=== PATIENT | female | born 1950 | race Hispanic/Latino ===

== ENCOUNTER 2020-12-11 13:40 | Observation (INO) | payer OTHER ==
[~2020-12-11] VITALS: Ht 157.5 cm; Wt 54.4 kg
[2020-12-11 14:02] LABS: BASOPHILS % (AUTO) 0.7 % (0.0-5.0); EOSINOPHILS % (AUTO) 2.3 % (0.0-8.0); HEMATOCRIT 38.5 % (36-48); LYMPHOCYTES % (AUTO) 35.9 % (21.0-51.0); MEAN CORPUSCULAR HEMOGLOBIN 30.5 pg (27.0-33.0); MEAN CORPUSCULAR HGB CONC 34.3 g/dL (32.0-36.0); MEAN CORPUSCULAR VOLUME 88.9 fL (79-99); MONOCYTES % (AUTO) 8.6 % (3.0-13.0); NEUTROPHILS % (AUTO) 51.4 % (40.0-77.0); PLATELET COUNT (AUTO) 180 K/uL (130-400); RED BLOOD CELL COUNT(AUTO) 4.33 MIL/uL (4.00-5.50); RED CELL DISTRIBUTION WIDTH 13.3 % (11.0-15.5); WHITE BLOOD COUNT (AUTO) 5.7 K/uL (4.8-10.8)
[2020-12-11 14:13] LABS: CREATININE 0.8 mg/dL (0.5-1.5); INR 0.94 (0.85-1.15); POTASSIUM 3.7 mmol/L (3.5-5.1); PROTHROMBIN TIME 10.3 SEC (9.6-11.6)
[2020-12-11 14:14] LABS: PARTIAL THROMBOPLASTIN TIME 24.2 SEC (26.3-35.5)
[2020-12-11 14:18] LABS: ALBUMIN 4.1 g/dL (3.5-5.0); BILIRUBIN,TOTAL 1.6 mg/dL (0.2-1.0); TOTAL PROTEIN, SERUM 6.9 g/dL (6.0-8.3)
[2020-12-11 14:24] LABS: B-TYPE NATRIURETIC PEPTIDE 53 pg/mL (0-100)
[2020-12-11] MEDS ORDERED: IOHEXOL 350 MG/ML 100ML INFUS..BTL IV ONE (14:37)
[2020-12-11 15:00] LABS: APPEARANCE,URINE Clear (CLEAR); BILIRUBIN,URINE Negative (NEGATIVE); COLOR,URINE Yellow (YELLOW); GLUCOSE, URINE (UA) Negative (NEGATIVE); KETONES,URINE Negative (NEGATIVE); LEUKOCYTE ESTERASE ,URINE Negative (NEGATIVE); NITRATE,URINE Negative (NEGATIVE); OCCULT BLOOD,URINE Negative (NEGATIVE); PROTEIN,URINE Negative (NEGATIVE); UROBILINOGEN,URINE 0.2 mg/dL (0.2-1.0)
[2020-12-11 15:04] LABS: RAPID GROUP A STREP NEGATIVE (NEGATIVE)
[2020-12-11] MEDS ORDERED: ONDANSETRON HCL 4 MG/2 ML VIAL IVP PRN (15:45)
[2020-12-11] MEDS ORDERED: SODIUM CHLORIDE 0.9% 1000ML 1,000 ML IV SCH (15:45)
[2020-12-11] MEDS ORDERED: ACETAMINOPHEN 325 MG TAB PO PRN (15:45)
[2020-12-11] MEDS ORDERED: ASPIRIN 325 MG TABLET ONE (16:57)
[2020-12-11 18:01] VITALS: BP 155/76
[2020-12-11] MEDS ORDERED: LATA2.5D14 OU (18:16)
[2020-12-11] MEDS ORDERED: PRAV40TA3 PO (18:16)
[2020-12-11] MEDS ORDERED: LEVO88TA7 PO (18:16)
[2020-12-11] MEDS ORDERED: LISI10TA24 PO (18:16)
[2020-12-11 20:23] VITALS: BP 136/70
[2020-12-11 23:42] VITALS: BP 122/63
[2020-12-12 04:09] VITALS: BP 133/69
[2020-12-12 08:00] VITALS: BP 142/77
[2020-12-12] MEDS ORDERED: ATEN25TA PO ×2 (09:28→10:17)
[2020-12-12] MEDS ORDERED: LISI10TA24 PO (10:17)
[2020-12-12] MEDS ORDERED: ASPI-1443 PO (10:19)
[2020-12-12 12:00] VITALS: BP 129/75
[2020-12-12] MEDS ORDERED: ATORVASTATIN CALCIUM 10 MG TABLET PO SCH (21:00)
[2020-12-13] MEDS ORDERED: LEVOTHYROXINE 88 MCG TABLET PO SCH (06:30)
== END 2020-12-12 13:00 | disposition home or self-care (01) ==
LOC: EDH 13:40 → EDHIP 14:58 → 3AH 17:50
PROVIDERS: ADMIT Internal Medicine; ATTEND Internal Medicine
DX: R41.82 Altered mental status, unspecified (principal); Z20.822 Contact with and (suspected) exposure to COVID-19; F41.1 Generalized anxiety disorder; I12.9 Hypertensive chronic kidney disease with stage 1 through stage 4 chronic kidney disease, or unspecified chronic kidney disease; N18.2 Chronic kidney disease, stage 2 (mild); F32.5 Major depressive disorder, single episode, in full remission; R41.3 Other amnesia; M19.90 Unspecified osteoarthritis, unspecified site; E80.4 Gilbert syndrome; E53.8 Deficiency of other specified B group vitamins; E78.2 Mixed hyperlipidemia; E03.9 Hypothyroidism, unspecified; M81.0 Age-related osteoporosis without current pathological fracture; M43.16 Spondylolisthesis, lumbar region; E88.81 Metabolic syndrome and other insulin resistance; M50.90 Cervical disc disorder, unspecified, unspecified cervical region; Z87.891 Personal history of nicotine dependence; Z79.899 Other long term (current) drug therapy
CPT/HCPCS: 36415; 70450; 70496; 70498; 71045; 80053; 81003; 82550; 82948; 83605; 83880; 84145; 84484; 85025; 85610; 85730; 87040 ×2; 87426; 87804 ×2; 87880; 93005; 96360; 96361; 99285; G0378 ×22; Q9967; U0003

== ENCOUNTER 2023-10-20 13:45 | Emergency (ER) | payer OTHER ==
[~2023-10-20] VITALS: Ht 154.9 cm; Wt 63.0 kg
[~2023-10-20 13:45] MED LIST: ASPI-1443 PO; ATEN25TA PO; LATA2.5D14 OU; LEVO88TA7 PO; LISI10TA24 PO; PRAV40TA3 PO
[2023-10-20] MEDS: METOCLOPRAMIDE 10 MG/2 ML VIAL IVP ONE (15:24)
[2023-10-20] MEDS: MORPHINE 2 MG SYG IVP ONE (15:24)
[2023-10-20 16:01] LABS: BASOPHILS # (AUTO) 0.03 K/uL (0.00-0.20); BASOPHILS % (AUTO) 0.7 % (0.0-5.0); EOSINOPHILS # (AUTO) 0.05 K/uL (0.00-0.70); EOSINOPHILS % (AUTO) 1.2 % (0.0-8.0); HEMATOCRIT 40.2 % (36-48); IMMATURE GRANULOCYTE ABSOLUTE 0.01 K/uL (0-1); LYMPHOCYTES # (AUTO) 0.9 K/uL (1.0-4.8); LYMPHOCYTES % (AUTO) 20.5 % (21.0-51.0); MEAN CORPUSCULAR HEMOGLOBIN 30.2 pg (27.0-33.0); MEAN CORPUSCULAR HGB CONC 33.1 g/dL (32.0-36.0); MEAN CORPUSCULAR VOLUME 91.4 fL (79-99); MONOCYTES # (AUTO) 0.4 K/uL (0.1-1.0); MONOCYTES % (AUTO) 8.8 % (3.0-13.0); NEUTROPHILS # (AUTO) 2.9 K/uL (1.8-7.7); NEUTROPHILS % (AUTO) 68.6 % (40.0-77.0); PLATELET COUNT (AUTO) 182 K/uL (130-400); RED CELL DISTRIBUTION WIDTH 12.9 % (11.0-15.5); WHITE BLOOD COUNT (AUTO) 4.2 K/uL (4.8-10.8)
[2023-10-20 16:13] LABS: CREATININE 0.7 mg/dL (0.5-1.5); POTASSIUM 3.6 mmol/L (3.5-5.1)
[2023-10-20 16:27] LABS: MAGNESIUM 1.9 mg/dL (1.80-2.40); THYROID STIMULATING HORMONE 3.12 uIU/mL (0.36-3.74)
[2023-10-20 16:56] VITALS: BP 122/71; PULSE 55; RESP 17; O2SAT 97
[2023-10-20] MEDS ORDERED: ASPI-1005 PO (17:10)
[2023-10-20] MEDS ORDERED: METO-296 PO (17:10)
== END 2023-10-20 17:23 | disposition home or self-care (01) ==
LOC: EDH 13:45
DX: G44.209 Tension-type headache, unspecified, not intractable (principal); G45.9 Transient cerebral ischemic attack, unspecified; I10 Essential (primary) hypertension; E78.00 Pure hypercholesterolemia, unspecified; E03.9 Hypothyroidism, unspecified; Z79.82 Long term (current) use of aspirin; Z79.899 Other long term (current) drug therapy; Z98.890 Other specified postprocedural states
CPT/HCPCS: 99285; 96374; 70450; 96375; 84443; 83735; 80048; 85025; 36415; J2270; J2765